=== PATIENT | female | born 1980 | race Caucasian/White ===

== ENCOUNTER 2021-06-28 09:24 | Outpatient (CLI) | payer BC | END 2021-06-28 09:25 | disposition home or self-care (01) | LOC: CSHMAMMO 09:24 | PROVIDERS: ATTEND Obstetrics & Gynecology | DX: N64.89 Other specified disorders of breast (principal) | CPT/HCPCS: G0279 ==

== ENCOUNTER 2023-01-02 10:08 | Outpatient (CLI) | payer BC ==
[~2023-01-02 10:08] MED LIST: Iopamidol 300 61% 100 ML VIAL FS ONE
== END 2023-01-02 10:09 | disposition home or self-care (01) ==
LOC: CSHCT 10:08
PROVIDERS: ATTEND Internal Medicine Gastroenterology
DX: R10.12 Left upper quadrant pain (principal); K64.9 Unspecified hemorrhoids
CPT/HCPCS: 74177; Q9967